=== PATIENT | female | born 1975 | race Caucasian/White ===

== ENCOUNTER → 2016-12-07 | Outpatient (CLI) | payer OTHER | LOC: EMI 08:15 | DX: M54.40 Lumbago with sciatica, unspecified side (principal); M51.36 Other intervertebral disc degeneration, lumbar region | CPT/HCPCS: 72148 ==

== ENCOUNTER → 2017-01-02 | Outpatient (CLI) | payer OTHER | LOC: EXRD 11:37 | DX: M54.2 Cervicalgia (principal); M25.511 Pain in right shoulder; M25.512 Pain in left shoulder | CPT/HCPCS: 72040; 73030 ==

== ENCOUNTER 2021-12-19 16:58 | Emergency (ER) | payer OTHER ==
[2021-12-19 20:13] LABS: RED BLOOD COUNT 4.29 M/UL (4.00-5.10); WHITE BLOOD COUNT 9.6 K/UL (4.5-11.0)
[2021-12-19 20:32] LABS: BUN/CREATININE RATIO 20 (0-10)
[2021-12-19] MEDS ORDERED: DIFLUCAN200 MG PO (21:22)
[2021-12-19] MEDS ORDERED: SYMBICORT 80-10.2 GM INH (21:22)
== END 2021-12-19 21:43 | disposition home or self-care (01) ==
LOC: ER1 16:58
PROVIDERS: Family Medicine
DX: J44.9 Chronic obstructive pulmonary disease, unspecified (principal)
CPT/HCPCS: 36600; 80053; 82550; 82553; 82803; 84484; 85025; 85379; 87040; 94664; 99285; Q9967

== ENCOUNTER → 2022-01-25 | Outpatient (CLI) | payer OTHER ==
[~2022-01-25] MED LIST: DIFLUCAN200 MG PO; SYMBICORT 80-10.2 GM INH
== END ==
LOC: KOH-I 08:30
DX: J32.9 Chronic sinusitis, unspecified (principal)
CPT/HCPCS: 70486